=== PATIENT | male | born 1990 | race Two or more races ===

== ENCOUNTER 2024-09-16 09:05 | Day surgery (SDC) | payer MEDICAID, SELFPAY ==
--- NOTE | 2024-09-11 07:00 | EKG_ITS ---
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
[2024-09-11 09:13] VITALS: BMI 29.9
[2024-09-11 10:26] LABS: Collection Type, Urine Clean Catch
[2024-09-11 10:38] LABS: Basophils % (Auto) 1 % (0-2.5); Eosinophils # (Auto) 0.1 Thou/mm3 (0.0-0.5); Eosinophils % (Auto) 1 % (0-10); Hematocrit 49.5 % (41.0-53.0); Hemoglobin 16.8 g/dL (13.5-16.0); Immature Granulocytes % (Auto) 0 % (0-0); Immature Granulocytes Auto 0.01 Thou/mm3 (0.00-0.00); Lymphocytes # (Auto) 2.9 Thou/mm3 (1.0-4.8); Lymphocytes % (Auto) 41 % (10-50); Mean Corpuscular HGB Conc 33.9 g/dl (31.0-37.0); Mean Corpuscular Hemoglobin 29.8 pg (25.0-35.0); Mean Corpuscular Volume 88 fL (80-100); Monocytes # (Auto) 0.7 Thou/mm3 (0.0-0.8); Monocytes % (Auto) 10 % (0-12); Neutrophils # (Auto) 3.3 Thou/mm3 (1.8-7.7); Neutrophils % (Auto) 47 % (37-80); Nucleated Red Blood Cell % 0 /100 WBC (0); Platelet Count 273 Thou/mm3 (140-440); RDW Standard Deviation 39.9 fL (35.1-43.9); Red Blood Count 5.64 Miln/mm3 (4.50-5.90); White Blood Count 7.1 Thou/mm3 (3.8-10.6)
[2024-09-11 10:39] LABS: Bilirubin,Urine Negative (Negative); Blood,Urine Negative (Negative); Clarity,Urine Clear (Clear/Hazy); Color,Urine Lt-Yellow (Lt Yel-Yel); Glucose, Urine Negative (Negative); Ketones,Urine Negative (Negative); Leukocyte Esterase,Urine Negative (Negative); Nitrite,Urine Negative (Negative); PH,Urine 6.5 (5.0-7.0); Protein,Urine Trace (Neg - Trace); RBC,Urine 3 /hpf (0-3); Specific Gravity,Urine 1.031 (1.001-1.035); Squamous Epithelial Cell,Urine < 1 /hpf (0-5); Urobilinogen,Urine Negative mg/dL (0.0-1.0); WBC,Urine 1 /hpf (0-5)
[2024-09-11 10:50] LABS: Partial Thromboplastin Time 27.3 Seconds (22.0-36.0); Prothrombin Time 10.5 Seconds (9.0-12.2)
[2024-09-11 10:51] LABS: Alanine Aminotransferase 25 U/L (10-49); Albumin, Serum 4.6 gm/dL (3.5-5.0); Albumin/Globulin Ratio 1.4 (1.2-2.2); Alkaline Phosphatase 102 U/L (46-116); Anion Gap 5 (7-16); Aspartate Amino Transferase 16 U/L (0-34); BUN/Creatinine Ratio 13 Ratio (12-20); Bilirubin,Total 0.9 mg/dL (0.3-1.2); Blood Urea Nitrogen 13 mg/dL (9-23); Calcium 9.6 mg/dL (8.3-10.6); Calcium (Corrected) 9.6 mg/dL (8.5-10.1); Chloride 106 mMol/L (98-107); Estimated Creatinine Clearance 138.7 mL/min (>60); Globulin 3.3 gm/dL (2.3-3.5); Glucose 108 mg/dL (74-106); Osmolality,Calculated 276 (275-295); Potassium 4.4 mMol/L (3.4-5.1); Sodium 138 mMol/L (136-145); Total Protein 7.9 gm/dL (5.7-8.2); eGFR > 60 See Note
--- NOTE | 2024-09-14 11:04 | ESHP_ITS ---
HPI Date of Admission September 16, 2024. Chief Complaint Chief Complaint: Extensive hemorrhoids and bleeding HPI A 34-year-old male is brought to the operating room for hemorrhoidectomy and fissurectomy and lateral sphincterotomy. 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 He has some developmental disability for learning and therefore his brother is managing all his affairs and making payments for him however he is allowed to sign the consent. The risk benefits and alternatives discussed with the patient and informed consent is obtained. He will get bowel prep before the surgery. Past Medical History Past Medical History NEUROLOGIC: Negative Neurological Disorders CARDIAC: Negative Cardiac Disorders or Congestive Heart Failure RESPIRATORY: Negative Respiratory Disorders or Chronic Obstructive Pulmonary Disease (COPD) GASTROINTESTINAL: Positive Gastrointestinal Disorders and Hemorrhoids GENITOURINARY: Negative Genitourinary Disorders or Renal Disease MUSCULOSKELETAL: Negative Musculoskeletal Disorders ENT: Negative History of ENT Problems ENDOCRINE: Negative Endocrine Disorders, Diabetes Mellitus Type 1 or Diabetes Mellitus Type 2 HEMATOLOGIC: Negative Blood Disorders OTHER HISTORY: Positive Chicken Pox; Negative Hospitalization, Autoimmune Disease, Shingles, Blood Transfusions, Anesthesia Reactions or Cancer Family History FAMILY HISTORY: Positive Family Cardiac Disorders, Family Endocrine Disorders, Family Cancer and Family Surgery; Negative Family Psychiatric Problems, Family Respiratory Disorders, Family Gastrointestinal Problems, Family Genitourinary Problems, Family Reproductive Disorders, Family Musculoskeletal Disorders or Family Anesthesia Reaction Surgical History OTHER SURGICAL HX: right eye pterygium, right hand tendon repair Social History SMOKING STATUS: Never smoker Travel History EBOLA RISK: No Meds Home Medications and Allergies Home Medications ?Medication ?Instructions ?Recorded ?Confirmed ?Type No Known Home Medications 09/11/24 09/11/24 History Allergies Allergy/AdvReac Type Severity Reaction Status Date / Time No Known Allergies Allergy Verified 09/11/24 09:10 Exam Constitutional Constitutional: no acute distress Routine HEENT Exam Head: Present normocephalic Eye: Present EOMI and PERRL ENT: Present mucous membranes moist Routine Neck Exam Neck: Present supple and trachea midline Routine Chest/Breast/Axilla Exam Chest wall: Absent tenderness or mass Routine Respiratory Exam Respiratory: Present chest non-tender, lungs clear, normal breath sounds and no resp distress; Absent respiratory distress Routine Cardiovascular Exam Cardiovascular: Present RRR Routine Abdominal Exam Abdominal: Present soft and normoactive bowel sounds Routine Rectal Exam Comments: Rectal examination shows a very tight anal sphincter with grade 3-4 internal/external hemorrhoids and fissure in ano. There is no mucosal lesion palpable within the reach of the finger. Routine Extremities Exam Extremities: Present full ROM Routine Skin Exam Skin: Present intact, dry and warm Routine Neurological Exam Neurological: Present alert, oriented X3 and CN II-XII intact Routine Psychiatric Exam Psychiatric: Present normal affect and normal thought process Results Results: Laboratory Laboratory results: results reviewed Assessment & Plan Problem List (1) Hemorrhoids: Qualifiers: Hemorrhoid type: third degree Qualified Code(s): K64.2 - Third degree hemorrhoids Status: Acute (2) Anal fissure: Status: Acute Plan Internal and external hemorrhoidectomy with fissurectomy and lateral sphincterotomy. Preoperative bowel prep was ordered. Informed consent is obtained. Quality Measures Quality Measures none
[2024-09-16] VITALS (8 sets, daily range): BP systolic 107–150; BP diastolic 59–107; PULSE 74–87; RESP 12–20; TEMP 36.2–37.1; O2SAT 94–99; BMI 25.2
--- NOTE | 2024-09-16 09:45 | CHAP ---
Patient expressed gratitude for prayer before their procedure.
[2024-09-16] MEDS: RINGERS LACTATED 1000 ML 1,000 ML 60 ML IV (09:53)
--- NOTE | 2024-09-16 11:10 | SUR.PHASEI ---
1110: Pt. arrived with LMA in place, vitals stable, breathing unlabored, no signs of distress, dressing to rectum has scant amount of blood, report received from Dhruv BAIN and MD Hsieh.
--- NOTE | 2024-09-16 11:38 | PD.SUROPNT ---
Date of Procedure 09/16/24 Pre Op Diagnosis Internal and external hemorrhoids with fissure in ano. Post Op Diagnosis Same. Procedure Internal and external hemorrhoidectomy with fissurectomy and lateral sphincterotomy. On September 16, 2024 Findings This patient had deep posterior fissure in ano and hypertrophy of the anal sphincters. He also has third-degree hemorrhoids located at 3:00 9:00 and 11 o'clock position. There were no other findings. Procedure Description The patient was interviewed in the preop area. Patient understanding of surgery was discussed and is ascertained that patient knows what procedure we are going to do. The risk benefits and alternatives of hemorrhoidectomy surgery were discussed in detail with the patient and informed consent is obtained. The risk includes risk of bleeding infection urinary retention possible long-term recurrence of the hemorrhoids and anesthesia related complications. The patient has done bowel prep as prescribed. Patient was taken to the operating room and laid supine on the operating room table. General anesthesia was administered satisfactorily. Patient is positioned in the lithotomy position on yellowfins. Perianal region is prepped and draped in usual manner. A timeout procedure was carried out. A dilute lidocaine with epinephrine is injected and pararectal and internal pudendal blocks were achieved bilaterally. Examination is carried out under anesthesia and shows that the patient has extensive hemorrhoids. The hemorrhoid at 3 o'clock position, 9 o'clock position and 11 o'clock position were removed. All hemorrhoids were removed by similar technique. For each hemorrhoid pedicles were ligated with 3-0 Vicryl sutures. After that a V-shaped incision was made around the external hemorrhoid and was dissected from the sphincter. The internal sphincter was identified and was protected. The hemorrhoid was removed as a specimen. The fissure was dissected and scar tissue was removed. After all this hemostasis is achieved. Significant amount of mucosa and the anal skin were left between the excisions in order to prevent the ng deformity. The hemorrhoidal incisions were kept open for secondary healing. Dilute lidocaine solution is infiltrated again. Lidocaine with Silverdene cream is applied. A cigarette drain fashioned from a 4 x 4 gauze is placed in the anal canal. Sterile dressing is applied. Patient tolerated the procedure very well. Anesthesia GETA Drains None. Implants None. Pathology / specimen Other (Hemorrhoid at 3 9 and 11 o'clock position) Estimated Blood Loss 5 Condition Stable Disposition PACU Surgeon Surya Welch MD Surgical Staff Operation Date: 09/16/24 11:00 Case Staff Anesthesiologist: Karl Hsieh RN rare/endangered species specialist Caesar Ascencio surgical resident (1) Hemorrhoids Qualifiers: Hemorrhoid type: third degree Qualified Code(s): K64.2 - Third degree hemorrhoids
--- NOTE | 2024-09-16 12:10 | SUR.PHASEII ---
1210: Pt. AAOx4, vitals stable, breathing unlabored, no complaint of pain or nausea, dressing to rectum CDI, no active bleed noted, pt. tolerated sips of water well, pt. ambulated to wheelchair with steady gait and no assist, no complications. Gave discharge instructions to the pt. and his ride, both verbalized understanding and had no further questions. Pt. left with all personal belongings.
== END 2024-09-16 12:10 | disposition home or self-care (01) ==
PROVIDERS: Referring Provider Specialist; Visit Provider Specialist
PROC: (CPT 46945; principal; 2024-09-16 11:00)
DX: K60.2 Anal fissure, unspecified (principal); K64.2 Third degree hemorrhoids; K64.4 Residual hemorrhoidal skin tags; Z82.49 Family history of ischemic heart disease and other diseases of the circulatory system; Z87.19 Personal history of other diseases of the digestive system; Z01.810 Encounter for preprocedural cardiovascular examination
CPT/HCPCS: 46945; 36415; 80053; 81001; 85025; 85610; 85730; 93005; A4649; J0694; J1885; J2250; J2704; J3010; J7120; A9270